=== PATIENT | female | born 1965 | race Caucasian/White ===

== ENCOUNTER 2018-09-01 12:08 | Emergency (ER) | payer OTHER ==
[~2018-09-01] VITALS: Ht 165.1 cm; Wt 70.3 kg
[2018-09-01] MEDS ORDERED: HYDROCHLOROTH12.5 M1 PO (12:23)
[2018-09-01] MEDS ORDERED: IBUPROFEN 800800 M1 PO (13:17)
[2018-09-01 13:38] VITALS: BP 167/94
== END 2018-09-01 13:39 | disposition home or self-care (01) ==
LOC: M.ERS 12:08
DX: S61.212A Laceration without foreign body of right middle finger without damage to nail, initial encounter (principal); I10 Essential (primary) hypertension; Z90.49 Acquired absence of other specified parts of digestive tract; Z98.890 Other specified postprocedural states; X58.XXXA Exposure to other specified factors, initial encounter; Y93.89 Activity, other specified; Y92.89 Other specified places as the place of occurrence of the external cause; Y99.8 Other external cause status

== ENCOUNTER 2018-09-14 14:57 | Emergency (ER) | payer OTHER ==
[~2018-09-14] VITALS: Ht 165.1 cm; Wt 70.3 kg
[~2018-09-14 14:57] MED LIST: HYDROCHLOROTH12.5 M1 PO; IBUPROFEN 800800 M1 PO
[2018-09-14 15:22] VITALS: BP 163/102
== END 2018-09-14 15:25 | disposition home or self-care (01) ==
LOC: M.ERS 14:57
DX: S61.213D Laceration without foreign body of left middle finger without damage to nail, subsequent encounter (principal); I10 Essential (primary) hypertension; Z98.890 Other specified postprocedural states; Z90.49 Acquired absence of other specified parts of digestive tract; X58.XXXD Exposure to other specified factors, subsequent encounter